=== PATIENT | male | born 1955 | race Hispanic/Latino ===

== ENCOUNTER 2019-06-17 15:19 | Emergency (ER) | payer OTHER ==
[~2019-06-17] VITALS: Ht 185.4 cm; Wt 105.2 kg
[2019-06-17] MEDS ORDERED: DEXAMETHASONE SOD PHOS 10 MG/1 ML VIAL IM ONE (15:30)
[2019-06-17] MEDS ORDERED: HYDROCODONE/APAP 10MG-325MG TAB PO ONE (15:30)
[2019-06-17] MEDS ORDERED: KETOROLAC TROMETHAMINE 60 MG/2 ML VIAL IM ONE (15:30)
[2019-06-17] MEDS ORDERED: CYCLOBENZAPRINE HCL 10 MG TAB PO ONE (15:30)
[2019-06-17] MEDS ORDERED: KETOROLAC TROMETHAMINE 60 MG/2 ML VIAL ONE (15:32)
[2019-06-17] MEDS ORDERED: CYCLOBENZAPRINE HCL 10 MG TAB ONE (15:32)
[2019-06-17] MEDS ORDERED: DEXAMETHASONE SOD PHOS 10 MG/1 ML VIAL ONE (15:33)
[2019-06-17] MEDS ORDERED: HYDROCODONE/APAP 10MG-325MG TAB ONE (15:33)
== END 2019-06-17 15:59 | disposition home or self-care (01) ==
LOC: ER 15:19
DX: M54.42 Lumbago with sciatica, left side (principal); E11.9 Type 2 diabetes mellitus without complications
CPT/HCPCS: 99283; J1100; J1885

== ENCOUNTER 2021-11-11 11:04 | Emergency (ER) | payer MEDICARE, OTHER ==
[~2021-11-11] VITALS: Ht 185.4 cm; Wt 105.2 kg
[2021-11-11 11:51] LABS: BASOPHILS # (AUTO) 0.1 (0.0-0.1); BASOPHILS % 1.3 % (0.0-1.0); EOSINOPHILS # (AUTO) 0.4 (0.0-0.4); EOSINOPHILS % 4.7 % (0.0-6.0); HEMATOCRIT 46.6 % (38.2-49.6); HEMOGLOBIN 15.3 g/dL (14.0-18.0); LYMPHOCYTES # (AUTO) 2.5 (1.0-3.2); LYMPHOCYTES % 28.5 % (18.0-39.1); MEAN CORPUSCULAR HEMOGLOBIN 31.4 pg (28-32); MEAN CORPUSCULAR HGB CONC 32.8 g/dL (31-35); MEAN CORPUSCULAR VOLUME 95.7 fL (81-99); MONOCYTES # (AUTO) 0.8 (0.2-0.8); MONOCYTES % 9.2 % (4.4-11.3); NEUTROPHILS # (AUTO) 4.9 (2.1-6.9); NEUTROPHILS % 56.1 % (38.7-80.0); PLATELET COUNT 216 x10e3/uL (140-360); RED BLOOD COUNT 4.87 x10e6/uL (4.3-5.7); RED CELL DISTRIBUTION WIDTH 13.2 % (11.7-14.4)
[2021-11-11 12:06] LABS: PARTIAL THROMBOPLASTIN TIME 26.7 seconds (23.8-35.5)
[2021-11-11 12:12] LABS: INR 0.88; PROTHROMBIN TIME 12.8 seconds (11.9-14.5)
[2021-11-11 12:13] LABS: CALCIUM 9.2 mg/dL (8.4-10.2); CREATININE, SERUM 0.79 mg/dL (0.72-1.25)
[2021-11-11] MEDS ORDERED: KEFLEX125 MG/5 M PO (12:47)
[2021-11-11] MEDS ORDERED: CLEOCIN HCL300 MG PO (12:57)
[2021-11-11 13:27] VITALS: BP 122/82
== END 2021-11-11 13:20 | disposition home or self-care (01) ==
LOC: ER 11:09
DX: L03.115 Cellulitis of right lower limb (principal); E11.65 Type 2 diabetes mellitus with hyperglycemia; E78.5 Hyperlipidemia, unspecified
CPT/HCPCS: 36415; 80048; 85025; 85610; 85730; 93970

== ENCOUNTER 2021-11-29 16:49 | Inpatient (IN) | payer MEDICARE ==
[~2021-11-29] VITALS: Ht 182.9 cm; Wt 102.1 kg
[~2021-11-29 16:49] MED LIST: CLEOCIN HCL300 MG PO; KEFLEX125 MG/5 M PO
[2021-11-29 17:22] LABS: BASOPHILS # (AUTO) 0.2 (0.0-0.1); BASOPHILS % 1.2 % (0.0-1.0); EOSINOPHILS # (AUTO) 0.6 (0.0-0.4); EOSINOPHILS % 4.7 % (0.0-6.0); HEMATOCRIT 46.6 % (38.2-49.6); HEMOGLOBIN 15.2 g/dL (14.0-18.0); LYMPHOCYTES # (AUTO) 2.9 (1.0-3.2); LYMPHOCYTES % 22.3 % (18.0-39.1); MEAN CORPUSCULAR HEMOGLOBIN 31.3 pg (28-32); MEAN CORPUSCULAR HGB CONC 32.6 g/dL (31-35); MEAN CORPUSCULAR VOLUME 95.9 fL (81-99); MONOCYTES # (AUTO) 1.1 (0.2-0.8); MONOCYTES % 8.3 % (4.4-11.3); NEUTROPHILS # (AUTO) 8.3 (2.1-6.9); NEUTROPHILS % 63.2 % (38.7-80.0); PLATELET COUNT 264 x10e3/uL (140-360); RED BLOOD COUNT 4.86 x10e6/uL (4.3-5.7); RED CELL DISTRIBUTION WIDTH 13.4 % (11.7-14.4)
[2021-11-29] MEDS ORDERED: Vancomycin IV 1 GM in SODIUM CHLORIDE 0.9% 250ML 250 ML IV ONE (17:30)
[2021-11-29 17:42] LABS: ALBUMIN 3.1 g/dL (3.5-5.0); ALBUMIN/GLOBULIN RATIO 0.7 (0.8-2.0); ANION GAP 17.2 mmol/L (8-16); CALCIUM 9.3 mg/dL (8.4-10.2); CREATININE, SERUM 0.82 mg/dL (0.72-1.25); POTASSIUM 4.2 mmol/L (3.5-5.1)
[2021-11-29] MEDS ORDERED: SODIUM CHLORIDE 0.9% 1000ML 1,000 ML IV ONE (18:00)
[2021-11-29] MEDS ORDERED: ONDANSETRON HCL INJ 2MG/ML 2ML 2 MG/ML VIAL IV PRN (19:45)
[2021-11-29] MEDS ORDERED: ACETAMINOPHEN 325 MG TAB PO PRN (19:45)
[2021-11-29 21:30] VITALS: BP 131/73
[2021-11-29 22:18] VITALS: BP 131/73
[2021-11-29] MEDS ORDERED: METFORMIN HCL500 M2 PO (22:24)
[2021-11-29] MEDS ORDERED: PENTOXIFYLLINE400 MG PO (22:24)
[2021-11-29] MEDS ORDERED: GLIMEPIRIDE2 MG PO (22:25)
[2021-11-29] MEDS ORDERED: ATORVASTATIN CA20 MG PO (22:26)
[2021-11-29] MEDS ORDERED: LISINOPRIL5 MG PO (22:26)
[2021-11-29] MEDS: INSULIN LISPRO 100 UNIT/1 ML 3ML VIAL SQ SCH (22:45)
[2021-11-29] MEDS ORDERED: DEXTROSE 50% SYRINGE 50 ML IV PRN (22:45)
[2021-11-29] MEDS: PENTOXIFYLLINE 400 MG TAB CR PO SCH (23:08)
[2021-11-29] MEDS: ATORVASTATIN 40 MG TAB PO SCH (23:08)
[2021-11-30] VITALS (9 sets, daily range): BP systolic 112–117; BP diastolic 68–74
[2021-11-30] MEDS ORDERED: SODIUM CHLORIDE 0.9% 250ML 250 ML ONE (00:44)
[2021-11-30] MEDS: Vancomycin IV 1 GM in SODIUM CHLORIDE 0.9% 250ML 250 ML IV SCH ×2 (05:30→17:42)
[2021-11-30 05:50] LABS: BASOPHILS # (AUTO) 0.1 (0.0-0.1); BASOPHILS % 1.1 % (0.0-1.0); EOSINOPHILS # (AUTO) 0.5 (0.0-0.4); EOSINOPHILS % 4.2 % (0.0-6.0); HEMATOCRIT 43.5 % (38.2-49.6); HEMOGLOBIN 14.7 g/dL (14.0-18.0); LYMPHOCYTES # (AUTO) 2.4 (1.0-3.2); LYMPHOCYTES % 20.8 % (18.0-39.1); MEAN CORPUSCULAR HEMOGLOBIN 31.4 pg (28-32); MEAN CORPUSCULAR HGB CONC 33.8 g/dL (31-35); MEAN CORPUSCULAR VOLUME 92.9 fL (81-99); MONOCYTES # (AUTO) 1.2 (0.2-0.8); MONOCYTES % 10.4 % (4.4-11.3); NEUTROPHILS # (AUTO) 7.2 (2.1-6.9); PLATELET COUNT 234 x10e3/uL (140-360); RED BLOOD COUNT 4.68 x10e6/uL (4.3-5.7); RED CELL DISTRIBUTION WIDTH 13.5 % (11.7-14.4)
[2021-11-30 06:21] LABS: ALBUMIN 2.9 g/dL (3.5-5.0); ALBUMIN/GLOBULIN RATIO 0.8 (0.8-2.0); ANION GAP 13.5 mmol/L (8-16); CALCIUM 8.8 mg/dL (8.4-10.2); CREATININE, SERUM 0.72 mg/dL (0.72-1.25); POTASSIUM 4.5 mmol/L (3.5-5.1)
[2021-11-30] MEDS: INSULIN LISPRO 100 UNIT/1 ML 3ML VIAL SQ SCH ×4 (07:30→20:33)
[2021-11-30] MEDS: GLIMEPIRIDE 2 MG TAB PO SCH ×2 (09:05→16:01)
[2021-11-30] MEDS: METFORMIN HCL 500 MG TAB CR PO SCH ×2 (09:05→16:01)
[2021-11-30] MEDS: LISINOPRIL 2.5 MG TAB PO SCH (09:06)
[2021-11-30] MEDS: PENTOXIFYLLINE 400 MG TAB CR PO SCH ×3 (09:06→20:32)
[2021-11-30] MEDS: ATORVASTATIN 40 MG TAB PO SCH (20:32)
[2021-12-01] VITALS (8 sets, daily range): BP systolic 99–120; BP diastolic 69–87
[2021-12-01] MEDS: Vancomycin IV 1 GM in SODIUM CHLORIDE 0.9% 250ML 250 ML IV SCH (05:59)
[2021-12-01] MEDS: INSULIN LISPRO 100 UNIT/1 ML 3ML VIAL SQ SCH ×4 (07:30→21:00)
[2021-12-01] MEDS: LISINOPRIL 2.5 MG TAB PO SCH (08:33)
[2021-12-01] MEDS: GLIMEPIRIDE 2 MG TAB PO SCH ×2 (08:34→16:44)
[2021-12-01] MEDS: METFORMIN HCL 500 MG TAB CR PO SCH ×2 (08:34→16:44)
[2021-12-01] MEDS: PENTOXIFYLLINE 400 MG TAB CR PO SCH ×3 (08:35→21:43)
[2021-12-01] MEDS: ONDANSETRON HCL 4 MG ORAL DISINTEGRATING TAB PO PRN (11:31)
[2021-12-01] MEDS: Morphine 4mg INJECTION 4 MG/ML INJ IV PRN (11:32)
[2021-12-01] MEDS: Vancomycin IV 1.25 GM in SODIUM CHLORIDE 0.9% 250ML 250 ML IV SCH (12:39)
[2021-12-01] MEDS: ATORVASTATIN 40 MG TAB PO SCH (21:43)
[2021-12-02] VITALS (7 sets, daily range): BP systolic 106–128; BP diastolic 66–80
[2021-12-02] MEDS: Vancomycin IV 1.25 GM in SODIUM CHLORIDE 0.9% 250ML 250 ML IV SCH ×2 (01:03→12:43)
[2021-12-02] MEDS: INSULIN LISPRO 100 UNIT/1 ML 3ML VIAL SQ SCH ×4 (07:30→21:00)
[2021-12-02] MEDS: Morphine 4mg INJECTION 4 MG/ML INJ IV PRN ×3 (09:31→21:15)
[2021-12-02] MEDS: LISINOPRIL 2.5 MG TAB PO SCH (09:31)
[2021-12-02] MEDS: GLIMEPIRIDE 2 MG TAB PO SCH ×2 (09:31→17:14)
[2021-12-02] MEDS: PENTOXIFYLLINE 400 MG TAB CR PO SCH ×3 (09:31→21:15)
[2021-12-02] MEDS: ONDANSETRON HCL 4 MG ORAL DISINTEGRATING TAB PO PRN ×2 (09:31→17:01)
[2021-12-02] MEDS: METFORMIN HCL 500 MG TAB CR PO SCH ×2 (09:32→17:14)
[2021-12-02] MEDS: ATORVASTATIN 40 MG TAB PO SCH (21:15)
[2021-12-03] VITALS (7 sets, daily range): BP systolic 106–118; BP diastolic 70–90
[2021-12-03] MEDS: Vancomycin IV 1.25 GM in SODIUM CHLORIDE 0.9% 250ML 250 ML IV SCH ×2 (01:30→12:40)
[2021-12-03] MEDS: Morphine 4mg INJECTION 4 MG/ML INJ IV PRN ×4 (02:01→22:09)
[2021-12-03] MEDS: ONDANSETRON HCL 4 MG ORAL DISINTEGRATING TAB PO PRN (02:01)
[2021-12-03] MEDS: INSULIN LISPRO 100 UNIT/1 ML 3ML VIAL SQ SCH ×4 (07:30→20:29)
[2021-12-03] MEDS: PENTOXIFYLLINE 400 MG TAB CR PO SCH ×3 (09:19→20:24)
[2021-12-03] MEDS: METFORMIN HCL 500 MG TAB CR PO SCH ×2 (09:19→17:38)
[2021-12-03] MEDS: GLIMEPIRIDE 2 MG TAB PO SCH ×2 (09:19→17:38)
[2021-12-03] MEDS: LISINOPRIL 2.5 MG TAB PO SCH (09:20)
[2021-12-03] MEDS: ATORVASTATIN 40 MG TAB PO SCH (20:25)
[2021-12-04] VITALS (9 sets, daily range): BP systolic 105–127; BP diastolic 61–107
[2021-12-04] MEDS: INSULIN LISPRO 100 UNIT/1 ML 3ML VIAL SQ SCH ×4 (07:30→22:08)
[2021-12-04] MEDS: METFORMIN HCL 500 MG TAB CR PO SCH ×2 (08:18→16:57)
[2021-12-04] MEDS: Morphine 4mg INJECTION 4 MG/ML INJ IV PRN ×4 (08:19→21:28)
[2021-12-04] MEDS: GLIMEPIRIDE 2 MG TAB PO SCH ×2 (08:19→16:57)
[2021-12-04] MEDS: PENTOXIFYLLINE 400 MG TAB CR PO SCH ×3 (08:20→21:28)
[2021-12-04] MEDS: LISINOPRIL 2.5 MG TAB PO SCH (08:20)
[2021-12-04] MEDS: ATORVASTATIN 40 MG TAB PO SCH (21:28)
[2021-12-05 05:51] LABS: BASOPHILS # (AUTO) 0.1 (0.0-0.1); BASOPHILS % 1.4 % (0.0-1.0); EOSINOPHILS # (AUTO) 0.5 (0.0-0.4); EOSINOPHILS % 5.4 % (0.0-6.0); HEMATOCRIT 43.8 % (38.2-49.6); HEMOGLOBIN 14.5 g/dL (14.0-18.0); LYMPHOCYTES # (AUTO) 2.4 (1.0-3.2); LYMPHOCYTES % 25.4 % (18.0-39.1); MEAN CORPUSCULAR HEMOGLOBIN 30.9 pg (28-32); MEAN CORPUSCULAR HGB CONC 33.1 g/dL (31-35); MEAN CORPUSCULAR VOLUME 93.4 fL (81-99); MONOCYTES # (AUTO) 1.1 (0.2-0.8); MONOCYTES % 11.1 % (4.4-11.3); NEUTROPHILS # (AUTO) 5.4 (2.1-6.9); NEUTROPHILS % 56.2 % (38.7-80.0); PLATELET COUNT 270 x10e3/uL (140-360); RED BLOOD COUNT 4.69 x10e6/uL (4.3-5.7); RED CELL DISTRIBUTION WIDTH 13.2 % (11.7-14.4)
[2021-12-05 05:59] VITALS: BP 109/68
[2021-12-05 06:22] LABS: ANION GAP 14.1 mmol/L (8-16); CALCIUM 8.9 mg/dL (8.4-10.2); CREATININE, SERUM 0.68 mg/dL (0.72-1.25); POTASSIUM 4.1 mmol/L (3.5-5.1)
[2021-12-05 08:00] VITALS: BP 109/68
[2021-12-05 08:08] VITALS: BP 105/61
[2021-12-05] MEDS: Morphine 4mg INJECTION 4 MG/ML INJ IV PRN ×2 (08:47→12:43)
[2021-12-05] MEDS: INSULIN LISPRO 100 UNIT/1 ML 3ML VIAL SQ SCH ×3 (08:50→16:15)
[2021-12-05] MEDS: PENTOXIFYLLINE 400 MG TAB CR PO SCH ×2 (08:51→16:06)
[2021-12-05] MEDS: METFORMIN HCL 500 MG TAB CR PO SCH ×2 (08:51→16:15)
[2021-12-05] MEDS: GLIMEPIRIDE 2 MG TAB PO SCH ×2 (08:51→16:15)
[2021-12-05] MEDS: LISINOPRIL 2.5 MG TAB PO SCH (08:52)
[2021-12-05 11:40] VITALS: BP 114/70
[2021-12-05 15:42] VITALS: BP 110/75
[2021-12-05] MEDS ORDERED: CEPHALEXIN500 MG PO (15:48)
[2021-12-05] MEDS ORDERED: HYDROCHLOROTHIA25 MG PO (15:48)
[2021-12-05] MEDS ORDERED: CEFTRIAXONE 2 GM in SODIUM CHLORIDE 0.9% 100 ML IV SCH (17:00)
[2021-12-06] MEDS ORDERED: COLLAGENASE 5 GM TUBE TP SCH (09:00)
== END 2021-12-05 17:29 | disposition home or self-care (01) | DRG 872 ==
LOC: ER 17:06 → ERHOLD 19:34 → MED/SURG2 21:40
PROVIDERS: ADMIT Internal Medicine; ATTEND Internal Medicine
DX: A41.51 Sepsis due to Escherichia coli [E. coli] (principal); L03.115 Cellulitis of right lower limb; E11.69 Type 2 diabetes mellitus with other specified complication; E78.5 Hyperlipidemia, unspecified; Z20.822 Contact with and (suspected) exposure to COVID-19; I87.2 Venous insufficiency (chronic) (peripheral); I89.0 Lymphedema, not elsewhere classified; R60.0 Localized edema
CPT/HCPCS: 36415; 70250; 80048; 80053; 80202; 82948; 83605; 85025; 85651; 87040; 87071; 87186; 87205; 93971; 94799; 99251; 99284; J0696; J2270; J2543; J3370; J7030; J7050; Q0162

== ENCOUNTER → 2021-12-23 | Outpatient (RCR) | payer MEDICARE ==
[~2021-12-23] MED LIST changes: +ATORVASTATIN CA20 MG PO; +CEPHALEXIN500 MG PO; +COLLAGENASE OINTMENT 30 GM TUBE ONE; +GLIMEPIRIDE2 MG PO; +HYDROCHLOROTHIA25 MG PO; +LIDOCAINE VISC 2% SOLN 15 ML UDC ONE; +LISINOPRIL5 MG PO; +METFORMIN HCL500 M2 PO; +MINERAL OIL/PETROLAT/GLYCERI 6OZ BTL ONE; +MUPIROCIN 2% OINT 22 GM TUBE ONE; +PENTOXIFYLLINE400 MG PO
== END ==
LOC: WCC 12-14 08:29
PROVIDERS: ATTEND Family Medicine
DX: E13.622 Other specified diabetes mellitus with other skin ulcer (principal); L97.811 Non-pressure chronic ulcer of other part of right lower leg limited to breakdown of skin; L03.818 Cellulitis of other sites; I83.11 Varicose veins of right lower extremity with inflammation; R60.0 Localized edema; I10 Essential (primary) hypertension; E78.5 Hyperlipidemia, unspecified; B96.20 Unspecified Escherichia coli [E. coli] as the cause of diseases classified elsewhere; B96.29 Other Escherichia coli [E. coli] as the cause of diseases classified elsewhere
CPT/HCPCS: 36415; 82948

== ENCOUNTER 2022-01-20 10:43 | Outpatient (RCR) | payer MEDICARE | END 2022-01-23 | LOC: WCC 10:43 | PROVIDERS: ATTEND Family Medicine | DX: E13.622 Other specified diabetes mellitus with other skin ulcer (principal); L97.511 Non-pressure chronic ulcer of other part of right foot limited to breakdown of skin; L97.811 Non-pressure chronic ulcer of other part of right lower leg limited to breakdown of skin; L03.818 Cellulitis of other sites; I83.11 Varicose veins of right lower extremity with inflammation; R60.0 Localized edema; I10 Essential (primary) hypertension; E78.5 Hyperlipidemia, unspecified; B96.20 Unspecified Escherichia coli [E. coli] as the cause of diseases classified elsewhere ==

== ENCOUNTER 2022-01-27 09:29 | Outpatient (RCR) | payer MEDICARE ==
[~2022-01-27 09:29] MED LIST changes: -COLLAGENASE OINTMENT 30 GM TUBE ONE; -LIDOCAINE VISC 2% SOLN 15 ML UDC ONE; -MINERAL OIL/PETROLAT/GLYCERI 6OZ BTL ONE; -MUPIROCIN 2% OINT 22 GM TUBE ONE
[2022-01-27] MEDS ORDERED: LIDOCAINE VISC 2% SOLN 15 ML UDC ONE (13:30)
[2022-01-27] MEDS ORDERED: COLLAGENASE OINTMENT 30 GM TUBE ONE (13:30)
== END 2022-02-22 ==
LOC: WCC 09:29
PROVIDERS: ATTEND Family Medicine
DX: E13.622 Other specified diabetes mellitus with other skin ulcer (principal); L97.811 Non-pressure chronic ulcer of other part of right lower leg limited to breakdown of skin; L03.818 Cellulitis of other sites; R60.0 Localized edema; I83.11 Varicose veins of right lower extremity with inflammation; B96.29 Other Escherichia coli [E. coli] as the cause of diseases classified elsewhere; I10 Essential (primary) hypertension; E78.5 Hyperlipidemia, unspecified

== ENCOUNTER 2023-07-09 14:07 | Inpatient (IN) | payer MEDICARE ==
[~2023-07-09] VITALS: Ht 188 cm; Wt 97.5 kg
[2023-07-09 14:55] LABS: BASOPHILS # (AUTO) 0.2 (0.0-0.1); BASOPHILS % 1.6 % (0.0-1.0); EOSINOPHILS # (AUTO) 0.4 (0.0-0.4); EOSINOPHILS % 3.6 % (0.0-6.0); HEMATOCRIT 50.6 % (38.2-49.6); HEMOGLOBIN 17.4 g/dL (14.0-18.0); LYMPHOCYTES # (AUTO) 3.3 (1.0-3.2); LYMPHOCYTES % 30.7 % (18.0-39.1); MEAN CORPUSCULAR HEMOGLOBIN 32.3 pg (28-32); MEAN CORPUSCULAR HGB CONC 34.4 g/dL (31-35); MEAN CORPUSCULAR VOLUME 93.9 fL (81-99); MONOCYTES # (AUTO) 1.1 (0.2-0.8); MONOCYTES % 10.2 % (4.4-11.3); NEUTROPHILS # (AUTO) 5.8 (2.1-6.9); NEUTROPHILS % 53.6 % (38.7-80.0); PLATELET COUNT 207 x10e3/uL (140-360); RED BLOOD COUNT 5.39 x10e6/uL (4.3-5.7); RED CELL DISTRIBUTION WIDTH 13.5 % (11.7-14.4); WHITE BLOOD COUNT 10.79 x10e3/uL (4.8-10.8)
[2023-07-09 14:59] LABS: INR 0.95; PROTHROMBIN TIME 12.9 seconds (11.9-14.5)
[2023-07-09 15:06] LABS: ALANINE AMINOTRANSFERASE 16 IU/L (0-55); ALBUMIN 3.8 g/dL (3.5-5.0); ALKALINE PHOSPHATASE 78 IU/L (40-150); ANION GAP 17.5 mmol/L (8-16); BILIRUBIN,TOTAL 0.3 mg/dL (0.2-1.2); BLOOD UREA NITROGEN 18 mg/dL (7-26); BUN/CREATININE RATIO 15 (6-25); CALCIUM 9.7 mg/dL (8.4-10.2); CARBON DIOXIDE 25 mmol/L (22-29); CHLORIDE 97 mmol/L (98-107); CREATININE, SERUM 1.21 mg/dL (0.72-1.25); EST GLOMERULAR FILTRATION RATE 66 ML/MIN (>=60); GLUCOSE 340 mg/dL (74-118); MAGNESIUM 1.8 MG/DL (1.3-2.1); POTASSIUM 4.5 mmol/L (3.5-5.1); SODIUM 135 mmol/L (136-145); TOTAL PROTEIN 7.8 g/dL (6.5-8.1)
[2023-07-09] MEDS: SODIUM CHLORIDE 0.9% 1000ML 1,000 ML IV STA (15:14)
[2023-07-09] MEDS: Vancomycin IV 1 GM in SODIUM CHLORIDE 0.9% 250ML 250 ML IV ONE (15:18)
[2023-07-09 15:19] LABS: TROPONIN I < 0.001 ng/mL (0-0.300)
[2023-07-09 15:30] LABS: BILIRUBIN,URINE NEGATIVE (NEGATIVE); CLARITY,URINE SL CLOUDY (CLEAR); COLOR,URINE YELLOW (YELLOW); GLUCOSE, URINE 500 (NEGATIVE); KETONES,URINE NEGATIVE (NEGATIVE); LEUKOCYTE ESTERASE ,URINE NEGATIVE (NEGATIVE); NITRITE,URINE NEGATIVE (NEGATIVE); PH,URINE 6 (5 - 7); PROTEIN,URINE DIPSTICK 1+ (NEGATIVE); URINE UROBILINOGEN 1 mg/dL (0.2 - 1)
[2023-07-09] MEDS ORDERED: ONDANSETRON HCL INJ 2MG/ML 2ML 2 MG/ML VIAL IV PRN (16:00)
[2023-07-09] MEDS ORDERED: Morphine 2mg Syringe 2 MG/ML SYR IV PRN (16:00)
[2023-07-09] MEDS ORDERED: DEXTROSE 50% SYRINGE 50 ML IV PRN (16:00)
[2023-07-09] MEDS: SODIUM CHLORIDE 0.9% 1000ML 1,000 ML IV SCH (16:13)
[2023-07-09] MEDS ORDERED: METHOCARBAMOL750 MG PO (17:33)
[2023-07-09] MEDS ORDERED: GABAPENTIN400 MG PO (17:33)
[2023-07-09] MEDS: INSULIN LISPRO 100 UNIT/1 ML 3ML VIAL SQ SCH (17:40)
[2023-07-09 18:07] VITALS: BP 125/87; PULSE 73; RESP 20; TEMP 97.6; O2SAT 95
[2023-07-09 18:13] VITALS: BP 125/87; PULSE 73; RESP 20; TEMP 97.6; O2SAT 95
[2023-07-09 20:13] VITALS: BP 111/71; PULSE 74; RESP 18; TEMP 97.8; O2SAT 96
[2023-07-09 21:00] VITALS: BP 111/71; PULSE 74; RESP 18; TEMP 97.8; O2SAT 96
[2023-07-09] MEDS ORDERED: IOPAMIDOL 370 MG/ML 100 ML INFUS..BTL INJ ONE (21:00)
[2023-07-09 23:57] VITALS: BP 123/79; PULSE 73; RESP 18; TEMP 98.2; O2SAT 96
[2023-07-10] MEDS: Vancomycin IV 1 GM in SODIUM CHLORIDE 0.9% 250ML 250 ML IV SCH (02:26)
[2023-07-10 05:37] LABS: BASOPHILS # (AUTO) 0.1 (0.0-0.1); BASOPHILS % 1.2 % (0.0-1.0); EOSINOPHILS # (AUTO) 0.4 (0.0-0.4); EOSINOPHILS % 4.5 % (0.0-6.0); HEMATOCRIT 47.3 % (38.2-49.6); HEMOGLOBIN 15.7 g/dL (14.0-18.0); LYMPHOCYTES # (AUTO) 3.1 (1.0-3.2); MEAN CORPUSCULAR HEMOGLOBIN 31.6 pg (28-32); MEAN CORPUSCULAR HGB CONC 33.2 g/dL (31-35); MEAN CORPUSCULAR VOLUME 95.2 fL (81-99); MONOCYTES # (AUTO) 0.9 (0.2-0.8); MONOCYTES % 9.2 % (4.4-11.3); NEUTROPHILS # (AUTO) 5.3 (2.1-6.9); NEUTROPHILS % 53.7 % (38.7-80.0); PLATELET COUNT 185 x10e3/uL (140-360); RED BLOOD COUNT 4.97 x10e6/uL (4.3-5.7); RED CELL DISTRIBUTION WIDTH 13.2 % (11.7-14.4); WHITE BLOOD COUNT 9.88 x10e3/uL (4.8-10.8)
[2023-07-10 06:25] LABS: ALBUMIN 3.3 g/dL (3.5-5.0); ANION GAP 12.9 mmol/L (8-16); BILIRUBIN,TOTAL 0.8 mg/dL (0.2-1.2); CALCIUM 8.8 mg/dL (8.4-10.2); CREATININE, SERUM 0.76 mg/dL (0.72-1.25); POTASSIUM 3.9 mmol/L (3.5-5.1); TOTAL PROTEIN 6.6 g/dL (6.5-8.1)
[2023-07-10 09:00] VITALS: BP 123/79; PULSE 73; RESP 18; TEMP 98.2; O2SAT 96
[2023-07-10 09:01] VITALS: BP 131/73; PULSE 74; RESP 18; TEMP 97.4; O2SAT 95
[2023-07-10 10:06] LABS: BASOPHILS % (MANUAL) 2 % (0-1.5); EOSINOPHILS % (MANUAL) 4 % (0-7); LYMPHOCYTES % (MANUAL) 31 % (19-48); MONOCYTES % (MANUAL) 5 % (3.4-9.0); NEUTROPHILS % (MANUAL) 56 % (40-74); PLATELET ESTIMATE ADEQUATE; PLATELET MORPHOLOGY COMMENT NORMAL; RBC MORPHOLOGY COMMENT NORMAL; REACTIVE LYMPHOCYTES 2
[2023-07-10 11:51] VITALS: BP 114/74; PULSE 79; RESP 17; TEMP 98.3; O2SAT 94
[2023-07-10 16:23] VITALS: BP 138/71; PULSE 68; RESP 18; TEMP 98.2; O2SAT 95
[2023-07-10 19:49] VITALS: BP 123/79; PULSE 78; RESP 21; TEMP 97.9; O2SAT 98
[2023-07-10 21:00] VITALS: BP 123/79; PULSE 78; RESP 21; TEMP 97.9; O2SAT 98
[2023-07-11] VITALS (8 sets, daily range): BP systolic 115–146; BP diastolic 70–90; PULSE 57–74; RESP 19–20; TEMP 97.5–98.3; O2SAT 94–97
[2023-07-11] MEDS ORDERED: LIDOCAINE HCL 1% LOCAL INJ 20 ML VIAL ONE (12:26)
[2023-07-11] MEDS ORDERED: LIDOCAINE 1% W/EPINEPHRINE 20 ML VIAL ONE (12:26)
[2023-07-11] MEDS ORDERED: BUPIVACAINE 0.25% 30ML SDV ONE (12:26)
[2023-07-11] MEDS: FENTANYL CITRATE/PF 100MCG/2 ML INJ ONE (13:37)
[2023-07-11] MEDS: HYDROCODONE/APAP 7.5MG-325MG 1 EA TAB ONE (13:40)
[2023-07-11] MEDS ORDERED: PROPOFOL IV EMULSION 10 MG/ML 20 ML VIAL ONE (14:09)
[2023-07-11] MEDS ORDERED: DEXAMETHASONE SOD PHOS INJ 4 MG/ML SDV ONE (14:09)
[2023-07-11] MEDS ORDERED: LIDOCAINE HCL 2% LOCAL INJ 5 ML SDV VIAL INJ ONE (14:09)
[2023-07-11] MEDS ORDERED: ONDANSETRON HCL INJ 2MG/ML 2ML 2 MG/ML VIAL ONE (14:09)
[2023-07-11] MEDS ORDERED: SEVOFLURANE INHAL SOLN 250 ML PEN BTL ONE (14:09)
[2023-07-11] MEDS ORDERED: FENTANYL CITRATE/PF 100MCG/2 ML INJ ONE (16:48)
[2023-07-11] MEDS: HYDROCODONE/APAP 7.5MG-325MG 1 EA TAB PO PRN (17:22)
[2023-07-12] VITALS: BP 135/81; PULSE 74; RESP 20; TEMP 97.8; O2SAT 97
[2023-07-12 04:00] VITALS: BP 120/73; PULSE 70; RESP 20; TEMP 98.2; O2SAT 95
[2023-07-12 06:07] LABS: ALBUMIN 3.4 g/dL (3.5-5.0); ANION GAP 13.1 mmol/L (8-16); BILIRUBIN,TOTAL 0.7 mg/dL (0.2-1.2); CALCIUM 8.8 mg/dL (8.4-10.2); CREATININE, SERUM 0.82 mg/dL (0.72-1.25); POTASSIUM 4.1 mmol/L (3.5-5.1); TOTAL PROTEIN 6.7 g/dL (6.5-8.1)
[2023-07-12 08:10] VITALS: BP 120/73; PULSE 70; RESP 20; TEMP 98.2; O2SAT 95
[2023-07-12 08:16] VITALS: BP 129/76; PULSE 70; RESP 20; TEMP 97.9; O2SAT 96
[2023-07-12] MEDS ORDERED: ONDANSETRON HCL 4 MG ORAL DISINTEGRATING TAB PO PRN (11:30)
[2023-07-12] MEDS ORDERED: AMOX TR-K CLV1 EAC2 PO (11:58)
[2023-07-12 12:16] VITALS: BP 112/91; PULSE 71; RESP 19; TEMP 97.9; O2SAT 97
[2023-07-12 16:44] VITALS: BP 122/82; PULSE 62; RESP 19; TEMP 97.7; O2SAT 97
== END 2023-07-12 18:50 | disposition home or self-care (01) | DRG 718 ==
LOC: ER 14:10 → ERHOLD 15:57 → MED/SURG3 16:49
PROVIDERS: ADMIT Internal Medicine; ATTEND Internal Medicine
PROC: 0VB50ZZ Excision of Scrotum, Open Approach (ICD-10-PCS; principal; 2023-07-11 12:36)
DX: N49.2 Inflammatory disorders of scrotum (principal); B95.4 Other streptococcus as the cause of diseases classified elsewhere; I10 Essential (primary) hypertension; N20.0 Calculus of kidney; N49.3 Fournier gangrene; E11.9 Type 2 diabetes mellitus without complications; Z79.84 Long term (current) use of oral hypoglycemic drugs; D35.02 Benign neoplasm of left adrenal gland; Z86.79 Personal history of other diseases of the circulatory system; Z79.899 Other long term (current) drug therapy
CPT/HCPCS: 36415; 74177; 80048; 80053; 80202; 81001; 82948; 83735; 84484; 85025; 85610; 85730; 87040; 87071; 87086; 87205; 93005; 94760; 99252; 99284; J1100; J2001; J2405; J2543; J7030; J7050; Q9967; U0002

== ENCOUNTER 2024-02-22 18:49 | Emergency (ER) | payer MEDICARE, OTHER ==
[~2024-02-22] VITALS: Ht 188 cm; Wt 97.5 kg
[~2024-02-22 18:49] MED LIST changes: +AMOX TR-K CLV1 EAC2 PO; +GABAPENTIN400 MG PO; +METHOCARBAMOL750 MG PO
[2024-02-22 19:38] LABS: BASOPHILS # (AUTO) 0.1 (0.0-0.1); BASOPHILS % 0.8 % (0.0-1.0); EOSINOPHILS # (AUTO) 0.1 (0.0-0.4); EOSINOPHILS % 0.7 % (0.0-6.0); HEMATOCRIT 45.7 % (38.2-49.6); HEMOGLOBIN 14.7 g/dL (14.0-18.0); LYMPHOCYTES # (AUTO) 2.1 (1.0-3.2); LYMPHOCYTES % 14.2 % (18.0-39.1); MEAN CORPUSCULAR HEMOGLOBIN 31.8 pg (28-32); MEAN CORPUSCULAR HGB CONC 32.2 g/dL (31-35); MEAN CORPUSCULAR VOLUME 98.9 fL (81-99); MONOCYTES # (AUTO) 1.5 (0.2-0.8); NEUTROPHILS # (AUTO) 10.8 (2.1-6.9); NEUTROPHILS % 73.8 % (38.7-80.0); PLATELET COUNT 255 x10e3/uL (140-360); RED BLOOD COUNT 4.62 x10e6/uL (4.3-5.7); RED CELL DISTRIBUTION WIDTH 13.4 % (11.7-14.4); WHITE BLOOD COUNT 14.67 x10e3/uL (4.8-10.8)
[2024-02-22 19:41] LABS: BILIRUBIN,URINE NEGATIVE (NEGATIVE); CLARITY,URINE CLOUDY (CLEAR); COLOR,URINE YELLOW (YELLOW); GLUCOSE, URINE >=1000 (NEGATIVE); KETONES,URINE NEGATIVE (NEGATIVE); LEUKOCYTE ESTERASE ,URINE SMALL (NEGATIVE); NITRITE,URINE POSITIVE (NEGATIVE); PH,URINE 6 (5 - 7); PROTEIN,URINE DIPSTICK 2+ (NEGATIVE); URINE UROBILINOGEN 0.2 mg/dL (0.2 - 1)
[2024-02-22] MEDS: SODIUM CHLORIDE 0.9% 1000ML 1,000 ML IV ONE (19:45)
[2024-02-22] MEDS: ACETAMINOPHEN 325 MG TAB PO STA (19:45)
[2024-02-22 19:53] LABS: ALBUMIN 2.8 g/dL (3.5-5.0); ALBUMIN/GLOBULIN RATIO 0.6 (0.8-2.0); ANION GAP 16.4 mmol/L (8-16); BILIRUBIN,TOTAL 0.4 mg/dL (0.2-1.2); CALCIUM 9.6 mg/dL (8.4-10.2); CREATININE, SERUM 1.04 mg/dL (0.72-1.25); POTASSIUM 4.4 mmol/L (3.5-5.1); TOTAL PROTEIN 7.3 g/dL (6.5-8.1)
[2024-02-22 19:54] VITALS: TEMP 98.9
[2024-02-22 19:54] LABS: BACTERIA,URINE MANY /HPF; TRANSITIONAL EPI CELLS,URINE FEW; WBC,URINE (MAN) 21-50 /HPF (0-5)
[2024-02-22 19:59] LABS: TROPONIN I 0.003 ng/mL (0-0.300)
[2024-02-22] MEDS ORDERED: IOPAMIDOL 370 MG/ML 100 ML INFUS..BTL INJ ONE (20:12)
[2024-02-22] MEDS: SODIUM CHLORIDE 0.9% 1000ML 1,000 ML IV STA (21:06)
[2024-02-22 22:15] VITALS: PULSE 83; RESP 18
[2024-02-22 22:55] LABS: ALBUMIN 2.4 g/dL (3.5-5.0); ALBUMIN/GLOBULIN RATIO 0.6 (0.8-2.0); ANION GAP 13.8 mmol/L (8-16); BILIRUBIN,TOTAL 0.3 mg/dL (0.2-1.2); CALCIUM 8.6 mg/dL (8.4-10.2); CREATININE, SERUM 0.85 mg/dL (0.72-1.25); POTASSIUM 3.8 mmol/L (3.5-5.1); TOTAL PROTEIN 6.3 g/dL (6.5-8.1)
[2024-02-22] MEDS ORDERED: AMOX TR-K CLV1 EAC2 PO (22:59)
[2024-02-22 23:43] VITALS: BP 112/63; PULSE 84; RESP 19; TEMP 98.7; O2SAT 96
== END 2024-02-22 23:38 | disposition home or self-care (01) ==
LOC: ER 18:55
DX: R10.13 Epigastric pain (principal); R65.20 Severe sepsis without septic shock; N39.0 Urinary tract infection, site not specified; N20.1 Calculus of ureter; K76.0 Fatty (change of) liver, not elsewhere classified
CPT/HCPCS: 36415; 74177; 80053; 81001; 82550; 83605; 83690; 84484; 85025; 87040; 87071; 87086; 87186; 87205; 99284; J2543; J7030; Q9967

== ENCOUNTER 2024-02-27 15:23 | Inpatient (IN) | payer MEDICARE ==
[~2024-02-27] VITALS: Ht 188 cm; Wt 97.5 kg
[2024-02-27 16:00] LABS: BASOPHILS # (AUTO) 0.1 (0.0-0.1); BASOPHILS % 1.1 % (0.0-1.0); EOSINOPHILS # (AUTO) 0.3 (0.0-0.4); EOSINOPHILS % 2.1 % (0.0-6.0); HEMATOCRIT 45.4 % (38.2-49.6); HEMOGLOBIN 14.2 g/dL (14.0-18.0); LYMPHOCYTES # (AUTO) 2.9 (1.0-3.2); LYMPHOCYTES % 22.1 % (18.0-39.1); MEAN CORPUSCULAR HGB CONC 31.3 g/dL (31-35); MEAN CORPUSCULAR VOLUME 99.1 fL (81-99); MONOCYTES % 7.5 % (4.4-11.3); NEUTROPHILS # (AUTO) 8.7 (2.1-6.9); NEUTROPHILS % 66.5 % (38.7-80.0); PLATELET COUNT 316 x10e3/uL (140-360); RED BLOOD COUNT 4.58 x10e6/uL (4.3-5.7); RED CELL DISTRIBUTION WIDTH 13.8 % (11.7-14.4); WHITE BLOOD COUNT 13.11 x10e3/uL (4.8-10.8)
[2024-02-27 16:16] LABS: ALBUMIN 2.7 g/dL (3.5-5.0); ALBUMIN/GLOBULIN RATIO 0.6 (0.8-2.0); ANION GAP 17.3 mmol/L (8-16); BILIRUBIN,TOTAL 0.4 mg/dL (0.2-1.2); CALCIUM 9.2 mg/dL (8.4-10.2); CREATININE, SERUM 0.73 mg/dL (0.72-1.25); POTASSIUM 4.3 mmol/L (3.5-5.1); TOTAL PROTEIN 7.4 g/dL (6.5-8.1)
[2024-02-27] MEDS ORDERED: SODIUM CHLORIDE FLUSH 10 ML SYR INJ PRN (17:00)
[2024-02-27] MEDS ORDERED: ONDANSETRON HCL INJ 2MG/ML 2ML 2 MG/ML VIAL IV PRN (17:00)
[2024-02-27 17:32] LABS: CLARITY,URINE CLEAR (CLEAR); COLOR,URINE YELLOW (YELLOW); PH,URINE 7 (5 - 7)
[2024-02-27 17:33] LABS: BILIRUBIN,URINE NEGATIVE (NEGATIVE); GLUCOSE, URINE NEGATIVE (NEGATIVE); KETONES,URINE NEGATIVE (NEGATIVE); LEUKOCYTE ESTERASE ,URINE TRACE (NEGATIVE); NITRITE,URINE NEGATIVE (NEGATIVE); PROTEIN,URINE DIPSTICK 1+ (NEGATIVE)
[2024-02-27 17:51] LABS: RBC,URINE 21-50 /HPF (0-5)
[2024-02-27 21:45] VITALS: PULSE 85; RESP 17; TEMP 98.4
[2024-02-27 22:17] VITALS: BP 124/80; PULSE 83; TEMP 98.1; O2SAT 95
[2024-02-28] VITALS (8 sets, daily range): BP systolic 104–147; BP diastolic 57–91; PULSE 58–83; RESP 18–19; TEMP 97.8–98.5; O2SAT 94–97
[2024-02-28] MEDS ORDERED: FLOMAX0.4 MG PO (01:14)
[2024-02-28] MEDS ORDERED: NEURONTIN400 MG PO (01:14)
[2024-02-28 05:35] LABS: BASOPHILS # (AUTO) 0.1 (0.0-0.1); EOSINOPHILS # (AUTO) 0.2 (0.0-0.4); EOSINOPHILS % 1.9 % (0.0-6.0); HEMATOCRIT 43.3 % (38.2-49.6); HEMOGLOBIN 13.4 g/dL (14.0-18.0); MEAN CORPUSCULAR HEMOGLOBIN 31.6 pg (28-32); MEAN CORPUSCULAR HGB CONC 30.9 g/dL (31-35); MEAN CORPUSCULAR VOLUME 102.1 fL (81-99); MONOCYTES % 8.1 % (4.4-11.3); NEUTROPHILS # (AUTO) 8.5 (2.1-6.9); NEUTROPHILS % 71.2 % (38.7-80.0); PLATELET COUNT 305 x10e3/uL (140-360); RED BLOOD COUNT 4.24 x10e6/uL (4.3-5.7); WHITE BLOOD COUNT 11.87 x10e3/uL (4.8-10.8)
[2024-02-28 06:03] LABS: ALBUMIN 2.4 g/dL (3.5-5.0); ALBUMIN/GLOBULIN RATIO 0.6 (0.8-2.0); ANION GAP 13.5 mmol/L (8-16); BILIRUBIN,TOTAL 0.2 mg/dL (0.2-1.2); CALCIUM 9.1 mg/dL (8.4-10.2); CREATININE, SERUM 0.79 mg/dL (0.72-1.25); POTASSIUM 4.5 mmol/L (3.5-5.1); TOTAL PROTEIN 6.2 g/dL (6.5-8.1)
[2024-02-28] MEDS ORDERED: DEXTROSE 50% SYRINGE 50 ML IV PRN (11:45)
[2024-02-28] MEDS ORDERED: SIMETHICONE 80 MG CHEW PO PRN (11:45)
[2024-02-28] MEDS ORDERED: ALBUTEROL/IPRATROPIUM 3 ML NEB NEB PRN (11:45)
[2024-02-28] MEDS ORDERED: ACETAMINOPHEN 325 MG TAB PO PRN (11:45)
[2024-02-28] MEDS ORDERED: METOPROLOL TARTRATE INJ 1 MG/ML VIAL IV PRN (11:45)
[2024-02-28] MEDS ORDERED: MELATONIN 3 MG TAB PO PRN (11:45)
[2024-02-28] MEDS ORDERED: DOCUSATE SODIUM 100 MG CAP PO PRN (11:45)
[2024-02-28] MEDS: SODIUM CHLORIDE 0.45% 1,000 ML IV SCH (13:20)
[2024-02-28] MEDS: INSULIN REGULAR, HUMAN 100 UNIT/1 ML SQ SCH (16:30)
[2024-02-28] MEDS: GABAPENTIN 300 MG CAP PO SCH (17:00)
[2024-02-28] MEDS: TAMSULOSIN HCL 0.4 MG CAP PO SCH (17:37)
[2024-02-28] MEDS: ENOXAPARIN SOD INJ 40 MG/0.4 ML SYR SC SCH (17:37)
[2024-02-29 00:30] VITALS: BP 122/78; PULSE 62; RESP 18; TEMP 97.7; O2SAT 97
[2024-02-29 04:30] VITALS: BP 113/75; PULSE 63; RESP 18; TEMP 98.4; O2SAT 94
[2024-02-29 08:00] VITALS: BP 133/79; PULSE 66; RESP 18; TEMP 98; O2SAT 95
[2024-02-29] MEDS: SENNOSIDES 8.6 MG TAB PO SCH (08:40)
[2024-02-29 10:34] LABS: BASOPHILS # (AUTO) 0.1 (0.0-0.1); EOSINOPHILS # (AUTO) 0.2 (0.0-0.4); EOSINOPHILS % 1.6 % (0.0-6.0); HEMATOCRIT 41.8 % (38.2-49.6); HEMOGLOBIN 13.9 g/dL (14.0-18.0); LYMPHOCYTES # (AUTO) 2.2 (1.0-3.2); LYMPHOCYTES % 18.9 % (18.0-39.1); MEAN CORPUSCULAR HEMOGLOBIN 31.5 pg (28-32); MEAN CORPUSCULAR HGB CONC 33.3 g/dL (31-35); MEAN CORPUSCULAR VOLUME 94.8 fL (81-99); MONOCYTES # (AUTO) 0.7 (0.2-0.8); MONOCYTES % 6.4 % (4.4-11.3); NEUTROPHILS # (AUTO) 8.3 (2.1-6.9); NEUTROPHILS % 71.4 % (38.7-80.0); PLATELET COUNT 363 x10e3/uL (140-360); RED BLOOD COUNT 4.41 x10e6/uL (4.3-5.7); RED CELL DISTRIBUTION WIDTH 13.6 % (11.7-14.4); WHITE BLOOD COUNT 11.57 x10e3/uL (4.8-10.8)
[2024-02-29 12:00] VITALS: BP 123/82; PULSE 71; RESP 19; TEMP 98.4; O2SAT 96
[2024-02-29 16:00] VITALS: BP 126/89; PULSE 70; RESP 16; TEMP 98; O2SAT 99
[2024-02-29 20:00] VITALS: BP 125/88; PULSE 65; RESP 18; TEMP 98.2; O2SAT 99
[2024-03-01 06:40] VITALS: BP 125/88; PULSE 65; RESP 18; TEMP 98.2; O2SAT 99
[2024-03-01 08:00] VITALS: BP 118/76; PULSE 73; RESP 18; TEMP 98.6; O2SAT 94
[2024-03-01 12:00] VITALS: BP 135/76; PULSE 71; RESP 16; TEMP 98.4; O2SAT 95
[2024-03-01 16:30] VITALS: BP 128/75; PULSE 82; RESP 16; TEMP 98.4; O2SAT 96
[2024-03-01 19:44] VITALS: BP 124/78; PULSE 70; TEMP 98.1
[2024-03-01 21:00] VITALS: BP 124/78; PULSE 70; RESP 16; TEMP 98.1; O2SAT 96
[2024-03-02] VITALS: BP 128/78; PULSE 70; RESP 16; TEMP 98.2; O2SAT 96
[2024-03-02 04:00] VITALS: BP 125/78; PULSE 72; RESP 16; TEMP 98.2; O2SAT 96
[2024-03-02 06:32] LABS: BASOPHILS # (AUTO) 0.2 (0.0-0.1); BASOPHILS % 1.1 % (0.0-1.0); EOSINOPHILS # (AUTO) 0.3 (0.0-0.4); EOSINOPHILS % 2.4 % (0.0-6.0); HEMATOCRIT 45.9 % (38.2-49.6); HEMOGLOBIN 14.9 g/dL (14.0-18.0); LYMPHOCYTES # (AUTO) 2.5 (1.0-3.2); LYMPHOCYTES % 18.1 % (18.0-39.1); MEAN CORPUSCULAR HEMOGLOBIN 31.4 pg (28-32); MEAN CORPUSCULAR HGB CONC 32.5 g/dL (31-35); MEAN CORPUSCULAR VOLUME 96.8 fL (81-99); MONOCYTES # (AUTO) 1.2 (0.2-0.8); MONOCYTES % 8.8 % (4.4-11.3); NEUTROPHILS # (AUTO) 9.6 (2.1-6.9); NEUTROPHILS % 68.8 % (38.7-80.0); PLATELET COUNT 395 x10e3/uL (140-360); RED BLOOD COUNT 4.74 x10e6/uL (4.3-5.7); RED CELL DISTRIBUTION WIDTH 13.5 % (11.7-14.4); WHITE BLOOD COUNT 13.96 x10e3/uL (4.8-10.8)
[2024-03-02 06:54] LABS: ANION GAP 14.3 mmol/L (8-16); CALCIUM 9.6 mg/dL (8.4-10.2); CREATININE, SERUM 0.75 mg/dL (0.72-1.25); POTASSIUM 4.3 mmol/L (3.5-5.1)
[2024-03-02] MEDS ORDERED: CEPHALEXIN500 MG PO (07:38)
[2024-03-02 08:00] VITALS: BP 119/77; PULSE 90; RESP 16; TEMP 98.4; O2SAT 97
[2024-03-02 08:37] VITALS: BP 119/77; PULSE 90; RESP 16; TEMP 98.4; O2SAT 97
== END 2024-03-02 10:25 | disposition home or self-care (01) | DRG 690 ==
LOC: ER 15:41 → ERHOLD 16:49 → MED/SURG 22:17 → OBSVTOIN 02-28 14:36
PROVIDERS: ADMIT Internal Medicine; ATTEND Internal Medicine
DX: N39.0 Urinary tract infection, site not specified (principal); R78.81 Bacteremia; Z16.24 Resistance to multiple antibiotics; B96.20 Unspecified Escherichia coli [E. coli] as the cause of diseases classified elsewhere; R31.29 Other microscopic hematuria; N20.0 Calculus of kidney; R32 Unspecified urinary incontinence; R80.9 Proteinuria, unspecified; R60.0 Localized edema; I10 Essential (primary) hypertension; F17.200 Nicotine dependence, unspecified, uncomplicated; E11.9 Type 2 diabetes mellitus without complications; Z79.84 Long term (current) use of oral hypoglycemic drugs; E78.00 Pure hypercholesterolemia, unspecified; K40.20 Bilateral inguinal hernia, without obstruction or gangrene, not specified as recurrent; D35.02 Benign neoplasm of left adrenal gland; K57.90 Diverticulosis of intestine, part unspecified, without perforation or abscess without bleeding; Z71.3 Dietary counseling and surveillance; Z68.27 Body mass index [BMI] 27.0-27.9, adult; Z79.899 Other long term (current) drug therapy
CPT/HCPCS: 36415; 74176; 80048; 80053; 81001; 82948; 85025; 87040; 87086; 93005; 99284; G0378; J0696; J1650

== ENCOUNTER 2024-03-21 18:17 | Inpatient (IN) | payer MEDICARE ==
[~2024-03-21] VITALS: Ht 188 cm; Wt 97.5 kg
[~2024-03-21 18:17] MED LIST changes: +FLOMAX0.4 MG PO; +NEURONTIN400 MG PO
[2024-03-21 19:54] VITALS: TEMP 99.5
[2024-03-21 20:12] LABS: BASOPHILS # (AUTO) 0.1 (0.0-0.1); BASOPHILS % 0.5 % (0.0-1.0); EOSINOPHILS % 0.2 % (0.0-6.0); HEMATOCRIT 45.7 % (38.2-49.6); HEMOGLOBIN 14.5 g/dL (14.0-18.0); LYMPHOCYTES # (AUTO) 1.5 (1.0-3.2); LYMPHOCYTES % 10.7 % (18.0-39.1); MEAN CORPUSCULAR HEMOGLOBIN 31.4 pg (28-32); MEAN CORPUSCULAR HGB CONC 31.7 g/dL (31-35); MEAN CORPUSCULAR VOLUME 98.9 fL (81-99); MONOCYTES # (AUTO) 1.5 (0.2-0.8); MONOCYTES % 10.3 % (4.4-11.3); NEUTROPHILS # (AUTO) 11.2 (2.1-6.9); PLATELET COUNT 156 x10e3/uL (140-360); RED BLOOD COUNT 4.62 x10e6/uL (4.3-5.7); RED CELL DISTRIBUTION WIDTH 14.6 % (11.7-14.4); WHITE BLOOD COUNT 14.33 x10e3/uL (4.8-10.8)
[2024-03-21 20:20] LABS: STREPTOCOCCUS GRP A ANTIGEN NEGATIVE (NEGATIVE)
[2024-03-21 20:30] LABS: CORONAVIRUS COVID-19 AG NEGATIVE (NEGATIVE); INFLUENZA A AG NEGATIVE (NEGATIVE); INFLUENZA B AG NEGATIVE (NEGATIVE)
[2024-03-21 20:32] LABS: ALBUMIN 3.2 g/dL (3.5-5.0); ALBUMIN/GLOBULIN RATIO 0.7 (0.8-2.0); ANION GAP 16.8 mmol/L (8-16); BILIRUBIN,TOTAL 0.7 mg/dL (0.2-1.2); CALCIUM 9.4 mg/dL (8.4-10.2); CREATININE, SERUM 1.37 mg/dL (0.72-1.25); POTASSIUM 4.8 mmol/L (3.5-5.1); TOTAL PROTEIN 7.7 g/dL (6.5-8.1)
[2024-03-21 20:38] LABS: TROPONIN I 0.006 ng/mL (0-0.300)
[2024-03-21] MEDS: SODIUM CHLORIDE 0.9% 1000ML 1,000 ML IV STA (21:29)
[2024-03-21] MEDS ORDERED: IOPAMIDOL 370 MG/ML 100 ML INFUS..BTL INJ ONE (21:33)
[2024-03-21 22:56] LABS: COLOR,URINE YELLOW (YELLOW)
[2024-03-21 22:57] LABS: BILIRUBIN,URINE NEGATIVE (NEGATIVE); CLARITY,URINE CLOUDY (CLEAR); GLUCOSE, URINE 500 (NEGATIVE); KETONES,URINE TRACE (NEGATIVE); LEUKOCYTE ESTERASE ,URINE SMALL (NEGATIVE); NITRITE,URINE POSITIVE (NEGATIVE); PH,URINE 5.5 (5 - 7); PROTEIN,URINE DIPSTICK 2+ (NEGATIVE); URINE UROBILINOGEN 0.2 mg/dL (0.2 - 1)
[2024-03-21 22:59] LABS: WBC,URINE (MAN) >50 /HPF (0-5)
[2024-03-21 23:00] LABS: BACTERIA,URINE MANY /HPF
[2024-03-21] MEDS ORDERED: Morphine 2mg Syringe 2 MG/ML SYR IV PRN (23:30)
[2024-03-22] VITALS (11 sets, daily range): BP systolic 112–153; BP diastolic 48–84; PULSE 76–100; RESP 18–22; TEMP 97.6–100.4; O2SAT 94–100
[2024-03-22] MEDS ORDERED: DEXTROSE 50% SYRINGE 50 ML IV PRN (00:15)
[2024-03-22] MEDS: INSULIN REGULAR, HUMAN 100 UNIT/1 ML IV STA (00:25)
[2024-03-22] MEDS: SODIUM CHLORIDE 0.9% 1000ML 1,000 ML IV SCH (01:10)
[2024-03-22 07:47] LABS: BASOPHILS # (AUTO) 0.1 (0.0-0.1); BASOPHILS % 0.4 % (0.0-1.0); EOSINOPHILS % 0.1 % (0.0-6.0); HEMATOCRIT 38.9 % (38.2-49.6); HEMOGLOBIN 12.5 g/dL (14.0-18.0); LYMPHOCYTES % 13.8 % (18.0-39.1); MEAN CORPUSCULAR HEMOGLOBIN 31.6 pg (28-32); MEAN CORPUSCULAR HGB CONC 32.1 g/dL (31-35); MEAN CORPUSCULAR VOLUME 98.5 fL (81-99); MONOCYTES # (AUTO) 1.8 (0.2-0.8); MONOCYTES % 12.6 % (4.4-11.3); NEUTROPHILS # (AUTO) 10.6 (2.1-6.9); NEUTROPHILS % 72.6 % (38.7-80.0); PLATELET COUNT 137 x10e3/uL (140-360); RED BLOOD COUNT 3.95 x10e6/uL (4.3-5.7); RED CELL DISTRIBUTION WIDTH 14.6 % (11.7-14.4); WHITE BLOOD COUNT 14.58 x10e3/uL (4.8-10.8)
[2024-03-22 08:13] LABS: ALBUMIN 2.6 g/dL (3.5-5.0); ALBUMIN/GLOBULIN RATIO 0.7 (0.8-2.0); BILIRUBIN,TOTAL 0.6 mg/dL (0.2-1.2); CALCIUM 8.7 mg/dL (8.4-10.2); CREATININE, SERUM 0.89 mg/dL (0.72-1.25); TOTAL PROTEIN 6.3 g/dL (6.5-8.1)
[2024-03-22 08:21] LABS: TROPONIN I 0.005 ng/mL (0-0.300)
[2024-03-22] MEDS: INSULIN REGULAR, HUMAN 100 UNIT/1 ML SQ SCH (09:05)
[2024-03-23] VITALS (8 sets, daily range): BP systolic 115–133; BP diastolic 68–80; PULSE 80–91; RESP 18–20; TEMP 98–100.3; O2SAT 95–100
[2024-03-23 05:47] LABS: BASOPHILS # (AUTO) 0.1 (0.0-0.1); BASOPHILS % 0.5 % (0.0-1.0); EOSINOPHILS % 0.1 % (0.0-6.0); HEMATOCRIT 36.4 % (38.2-49.6); HEMOGLOBIN 12.2 g/dL (14.0-18.0); LYMPHOCYTES # (AUTO) 1.6 (1.0-3.2); LYMPHOCYTES % 10.9 % (18.0-39.1); MEAN CORPUSCULAR HEMOGLOBIN 31.4 pg (28-32); MEAN CORPUSCULAR HGB CONC 33.5 g/dL (31-35); MEAN CORPUSCULAR VOLUME 93.6 fL (81-99); MONOCYTES # (AUTO) 1.8 (0.2-0.8); NEUTROPHILS % 75.5 % (38.7-80.0); PLATELET COUNT 150 x10e3/uL (140-360); RED BLOOD COUNT 3.89 x10e6/uL (4.3-5.7); RED CELL DISTRIBUTION WIDTH 14.6 % (11.7-14.4); WHITE BLOOD COUNT 14.58 x10e3/uL (4.8-10.8)
[2024-03-23 06:15] LABS: ANION GAP 15.7 mmol/L (8-16); CALCIUM 8.3 mg/dL (8.4-10.2); CREATININE, SERUM 0.76 mg/dL (0.72-1.25); POTASSIUM 3.7 mmol/L (3.5-5.1)
[2024-03-23 06:40] LABS: TROPONIN I 0.003 ng/mL (0-0.300)
[2024-03-23] MEDS: GABAPENTIN 100 MG CAP PO SCH (08:26)
[2024-03-23] MEDS: GABAPENTIN 400 MG CAP PO SCH (08:26)
[2024-03-23] MEDS: TAMSULOSIN HCL 0.4 MG CAP PO SCH (08:27)
[2024-03-23] MEDS: METHOCARBAMOL 750 MG TAB PO SCH (08:27)
[2024-03-23] MEDS: INSULIN LISPRO 100 UNIT/1 ML 3ML VIAL SQ SCH (21:52)
[2024-03-24] VITALS (9 sets, daily range): BP systolic 109–134; BP diastolic 73–88; PULSE 80–88; RESP 18–20; TEMP 97.9–99.3; O2SAT 93–99
[2024-03-24] MEDS: ONDANSETRON HCL INJ 2MG/ML 2ML 2 MG/ML VIAL IV PRN (13:34)
[2024-03-25 03:23] VITALS: BP 121/71; PULSE 77; RESP 18; TEMP 98.7; O2SAT 95
[2024-03-25 07:51] VITALS: BP 121/75; PULSE 65; RESP 19; TEMP 98.2; O2SAT 94
[2024-03-25 08:30] VITALS: BP 121/75; PULSE 65; RESP 19; TEMP 98.2; O2SAT 94
[2024-03-25 09:12] VITALS: PULSE 84; RESP 16; O2SAT 93
[2024-03-25 11:32] VITALS: PULSE 74; RESP 18; O2SAT 93
[2024-03-25 12:02] VITALS: BP 127/79; PULSE 74; RESP 20; TEMP 98.1; O2SAT 93
[2024-03-25] MEDS ORDERED: LEVOFLOXACIN250 MG PO (12:19)
== END 2024-03-25 13:45 | disposition home or self-care (01) | DRG 690 ==
LOC: ER 18:30 → ERHOLD 23:21 → MED/SURG2 03-22 01:02
PROVIDERS: ADMIT Internal Medicine; ATTEND Internal Medicine
DX: N10 Acute pyelonephritis (principal); Z16.12 Extended spectrum beta lactamase (ESBL) resistance; E11.65 Type 2 diabetes mellitus with hyperglycemia; N39.0 Urinary tract infection, site not specified; R62.7 Adult failure to thrive; B96.20 Unspecified Escherichia coli [E. coli] as the cause of diseases classified elsewhere; D64.9 Anemia, unspecified; R53.81 Other malaise; E78.5 Hyperlipidemia, unspecified; I10 Essential (primary) hypertension; R32 Unspecified urinary incontinence; R31.29 Other microscopic hematuria; E66.9 Obesity, unspecified; Z68.27 Body mass index [BMI] 27.0-27.9, adult; Z11.52 Encounter for screening for COVID-19; Z79.84 Long term (current) use of oral hypoglycemic drugs
CPT/HCPCS: 36415; 71045; 74177; 80048; 80053; 81001; 82550; 82948; 83518; 83690; 83880; 84484; 85025; 87070; 87086; 87186; 93005; 94799; 96372; 99284; J0696; J2185; J2405; J7030; Q9967